=== PATIENT | female | born 1945 | race Caucasian/White ===

== ENCOUNTER → 2017-09-05 | Outpatient (CLI) | payer MEDICARE ==
[~2017-09-05] MED LIST: ALLO100T PO; ATOR40TA69 PO; BISA5TAB12 PO; COLC0.6T67 PO; DICL2100G TP; GABA300S PO; LISI40TA4 PO; SERT100T12 PO; TRAM50TA4 PO; VIT D3; VIT500LI PO
== END | disposition home or self-care (01) ==
LOC: RAH 08:34
PROVIDERS: ATTEND Family Medicine
DX: Z12.31 Encounter for screening mammogram for malignant neoplasm of breast (principal)
CPT/HCPCS: 77067

== ENCOUNTER → 2017-09-18 | Outpatient (CLI) | payer MEDICARE | END | disposition home or self-care (01) | LOC: RAH 12:15 | PROVIDERS: ATTEND Family Medicine | DX: N60.01 Solitary cyst of right breast (principal); N60.02 Solitary cyst of left breast; R92.8 Other abnormal and inconclusive findings on diagnostic imaging of breast | CPT/HCPCS: 76641 ==

== ENCOUNTER 2018-05-14 09:37 | Emergency (ER) | payer MEDICARE ==
[~2018-05-14 09:37] MED LIST changes: +ASCO-360 PO; +CALC600T12 PO; +CARAL PO; -COLC0.6T67 PO; +FESO8TAB PO; +GABA-531 PO; -GABA300S PO; +HYLAND'S LEG CRAMPS PO; +MAGN400T40 PO; +NAPR220C15 PO; +ONDA4TAB10 PO; +POTA99TA4 PO; -VIT D3; +VIT D3 PO; -VIT500LI PO
[2018-05-14 10:46] LABS: CREATININE 0.8 mg/dL (0.5-1.5); POTASSIUM 4.1 mmol/L (3.5-5.1)
[2018-05-14 10:50] LABS: BILIRUBIN,TOTAL 0.8 mg/dL (0.2-1.0); MAGNESIUM 2.1 mg/dL (1.80-2.40); TOTAL PROTEIN, SERUM 7.8 g/dL (6.0-8.3)
[2018-05-14] MEDS ORDERED: ENOXAPARIN SODIUM 100 MG/1 ML SQ ONE (12:13)
== END 2018-05-14 12:50 | disposition home or self-care (01) ==
LOC: EDH 09:37
DX: I82.492 Acute embolism and thrombosis of other specified deep vein of left lower extremity (principal); E78.5 Hyperlipidemia, unspecified; I10 Essential (primary) hypertension; F32.9 Major depressive disorder, single episode, unspecified; Z91.041 Radiographic dye allergy status; Z90.710 Acquired absence of both cervix and uterus; Z98.890 Other specified postprocedural states
CPT/HCPCS: 36415; 80053; 83735; 93970; 96372; 99285; J1650

== ENCOUNTER 2018-05-14 19:36 | Inpatient (IN) | payer MEDICARE ==
[~2018-05-14] VITALS: Ht 162.6 cm; Wt 104.5 kg
[2018-05-14] MEDS ORDERED: ACETAMINOPHEN-CODEINE 300/30MG TAB ONE (20:04)
[2018-05-14] MEDS ORDERED: ONDANSETRON HCL 4 MG/2 ML VIAL ONE (21:36)
[2018-05-14] MEDS ORDERED: MORPHINE SULFATE 4 MG/1ML SYG ONE (21:37)
[2018-05-15] MEDS ORDERED: MORPHINE SULFATE 2 MG/ML 1ML SYG IVP PRN (01:15)
[2018-05-15] MEDS ORDERED: GLUCAGON 1MG KIT 1 MG ML IM PRN (01:15)
[2018-05-15] MEDS: LACTATED RINGERS 1000ML 1,000 ML IV SCH ×2 (01:15→23:26)
[2018-05-15] MEDS ORDERED: DEXTROSE 50%-WATER 50 ML DISP.SYRIN IV PRN (01:15)
[2018-05-15] MEDS ORDERED: ENOXAPARIN SODIUM 100 MG/1 ML SQ SCH ×2 (01:15→21:00)
[2018-05-15] MEDS ORDERED: LABETALOL 20 MG/4 ML DISP.SYRIN IV PRN (01:30)
[2018-05-15] MEDS ORDERED: ACETAMINOPHEN 325 MG TAB PO PRN ×2 (01:30)
[2018-05-15] MEDS ORDERED: ONDANSETRON HCL 4 MG/2 ML VIAL IVP PRN (01:30)
[2018-05-15] MEDS ORDERED: LACTATED RINGERS 1000ML 1,000 ML IV ONE (02:44)
[2018-05-15] MEDS ORDERED: ENOXAPARIN SODIUM 100 MG/1 ML SQ ONE (02:44)
[2018-05-15 03:00] VITALS: BP 138/76
[2018-05-15] MEDS: INSULIN R PO SS1 SQ SCH ×4 (06:23→21:00)
[2018-05-15 08:00] VITALS: BP 123/88
[2018-05-15] MEDS: HYDROCODONE/ACETAMINOPHEN 5/325 MG TAB PO PRN ×2 (11:31→17:07)
[2018-05-15 12:00] VITALS: BP 129/69
[2018-05-15] MEDS ORDERED: SUCRALFATE 1 GM/10 ML PO PRN (12:45)
[2018-05-15] MEDS ORDERED: [UNRECOGNIZED DRUG - OTHER] PO PRN (14:56)
[2018-05-15] MEDS: GABAPENTIN 300 MG CAPSULE PO SCH ×2 (15:10→23:52)
[2018-05-15 16:00] VITALS: BP 154/82
[2018-05-15 19:00] VITALS: BP 111/57
[2018-05-15] MEDS: ALLOPURINOL 100 MG TABLET PO SCH (23:13)
[2018-05-15] MEDS: ASCORBIC ACID 500 MG TAB PO SCH (23:13)
[2018-05-15] MEDS: ATORVASTATIN CALCIUM 40 MG TABLET PO SCH (23:13)
[2018-05-15] MEDS: CALCIUM CARBONATE 500 MG TABLET PO SCH (23:13)
[2018-05-15] MEDS: APIXABAN 5 MG TABLET PO SCH (23:14)
[2018-05-15] MEDS: BISACODYL 5 MG TABLET.DR PO SCH (23:14)
[2018-05-16] VITALS: BP 137/55
[2018-05-16] MEDS: HYDROCODONE/ACETAMINOPHEN 5/325 MG TAB PO PRN (01:42)
[2018-05-16 04:00] VITALS: BP 105/54
[2018-05-16 04:52] LABS: HEMATOCRIT 40.1 % (36-48); MEAN CORPUSCULAR HGB CONC 33.5 g/dL (32.0-36.0); MEAN CORPUSCULAR VOLUME 89.7 fL (79-99); NUCLEATED RED BLOOD CELLS 0.1 % (0.0-0.19); PLATELET COUNT (AUTO) 168 K/uL (130-400); RED BLOOD CELL COUNT(AUTO) 4.47 MIL/uL (4.00-5.50); RED CELL DISTRIBUTION WIDTH 14.3 % (11.0-15.5); WHITE BLOOD COUNT (AUTO) 8.4 K/uL (4.8-10.8)
[2018-05-16 05:11] LABS: CREATININE 0.7 mg/dL (0.5-1.5); POTASSIUM 3.6 mmol/L (3.5-5.1)
[2018-05-16] MEDS: INSULIN R PO SS1 SQ SCH ×4 (06:57→21:00)
[2018-05-16 07:00] VITALS: BP 136/81
[2018-05-16] MEDS: POTASSIUM 99 MG PO SCH (09:00)
[2018-05-16] MEDS: GABAPENTIN 300 MG CAPSULE PO SCH ×2 (10:11→14:32)
[2018-05-16] MEDS: APIXABAN 5 MG TABLET PO SCH ×2 (10:12→23:07)
[2018-05-16] MEDS: MAGNESIUM OXIDE 400 MG TABLET PO SCH (10:12)
[2018-05-16] MEDS: SERTRALINE HCL 50 MG TABLET PO SCH (10:12)
[2018-05-16] MEDS: LISINOPRIL 40 MG TABLET PO SCH (10:12)
[2018-05-16 11:00] VITALS: BP 114/70
[2018-05-16] MEDS: LACTATED RINGERS 1000ML 1,000 ML IV SCH (14:00)
[2018-05-16 15:51] VITALS: BP_SYST 115; BP_SYST 123; BP_DIAS 55; BP_DIAS 77
[2018-05-16] MEDS ORDERED: HYDROMORPHONE 1 MG/1 ML AMP IVP PRN (16:30)
[2018-05-16] MEDS ORDERED: MAG HYDROX/AL HYDROX/SIMETH ES 30 ML SUSP UDCUP PO PRN (17:00)
[2018-05-16 17:23] LABS: CREATINE KINASE, TOTAL 53 U/L (21-232); MYOGLOBIN 58 ng/mL (10-92); TROPONIN I < 0.04 ng/mL (0.00-0.06)
[2018-05-16] MEDS: PANTOPRAZOLE SODIUM 40 MG TABLET.DR PO SCH (17:58)
[2018-05-16 19:00] VITALS: BP 130/66
[2018-05-16] MEDS: BISACODYL 5 MG TABLET.DR PO SCH (21:00)
[2018-05-16] MEDS: ATORVASTATIN CALCIUM 40 MG TABLET PO SCH (23:07)
[2018-05-16] MEDS: CALCIUM CARBONATE 500 MG TABLET PO SCH (23:08)
[2018-05-16] MEDS: ASCORBIC ACID 500 MG TAB PO SCH (23:08)
[2018-05-16] MEDS: ALLOPURINOL 100 MG TABLET PO SCH (23:08)
[2018-05-16] MEDS: GABAPENTIN 100 MG CAPSULE PO SCH (23:08)
[2018-05-17] VITALS (7 sets, daily range): BP systolic 104–123; BP diastolic 45–54
[2018-05-17 04:59] LABS: MEAN CORPUSCULAR HEMOGLOBIN 30.2 pg (27.0-33.0); MEAN CORPUSCULAR VOLUME 88.9 fL (79-99); PLATELET COUNT (AUTO) 196 K/uL (130-400); RED BLOOD CELL COUNT(AUTO) 4.39 MIL/uL (4.00-5.50); RED CELL DISTRIBUTION WIDTH 14.1 % (11.0-15.5)
[2018-05-17 05:10] LABS: INR 1.22 (0.85-1.15); PARTIAL THROMBOPLASTIN TIME 34.8 SEC (26.3-35.5); PROTHROMBIN TIME 12.8 SEC (9.6-11.6)
[2018-05-17 05:21] LABS: CREATININE 0.8 mg/dL (0.5-1.5); MAGNESIUM 1.9 mg/dL (1.80-2.40); POTASSIUM 3.4 mmol/L (3.5-5.1); THYROID STIMULATING HORMONE 0.48 uIU/mL (0.36-3.74)
[2018-05-17] MEDS: LACTATED RINGERS 1000ML 1,000 ML IV SCH ×3 (06:19→20:43)
[2018-05-17] MEDS: INSULIN R PO SS1 SQ SCH ×4 (07:30→21:00)
[2018-05-17] MEDS: HYDROMORPHONE 1 MG/1 ML AMP IVP PRN ×2 (08:59→20:48)
[2018-05-17] MEDS: PANTOPRAZOLE SODIUM 40 MG TABLET.DR PO SCH (09:00)
[2018-05-17] MEDS: POTASSIUM 99 MG PO SCH (09:00)
[2018-05-17] MEDS: MAGNESIUM OXIDE 400 MG TABLET PO SCH (09:00)
[2018-05-17] MEDS: GABAPENTIN 100 MG CAPSULE PO SCH ×3 (09:01→20:45)
[2018-05-17] MEDS: LISINOPRIL 40 MG TABLET PO SCH (09:01)
[2018-05-17] MEDS: SERTRALINE HCL 50 MG TABLET PO SCH (09:01)
[2018-05-17] MEDS: APIXABAN 5 MG TABLET PO SCH ×2 (09:02→20:46)
[2018-05-17] MEDS ORDERED: MAGNESIUM 2GM PREMIX 50ML 50 ML IV SCH (17:00)
[2018-05-17] MEDS ORDERED: POTASSIUM CHLORIDE 20 MEQ ERTAB PO SCH (17:00)
[2018-05-17] MEDS: ASCORBIC ACID 500 MG TAB PO SCH (20:45)
[2018-05-17] MEDS: BISACODYL 5 MG TABLET.DR PO SCH (20:45)
[2018-05-17] MEDS: CALCIUM CARBONATE 500 MG TABLET PO SCH (20:45)
[2018-05-17] MEDS: ALLOPURINOL 100 MG TABLET PO SCH (20:46)
[2018-05-17] MEDS: ATORVASTATIN CALCIUM 40 MG TABLET PO SCH (20:46)
[2018-05-18] MEDS: HYDROCODONE/ACETAMINOPHEN 5/325 MG TAB PO PRN (01:07)
[2018-05-18 03:42] VITALS: BP 108/56
[2018-05-18] MEDS: HYDROMORPHONE 1 MG/1 ML AMP IVP PRN ×2 (04:27→21:06)
[2018-05-18] MEDS: INSULIN R PO SS1 SQ SCH ×4 (06:03→21:00)
[2018-05-18 08:32] VITALS: BP 127/60
[2018-05-18] MEDS: POTASSIUM 99 MG PO SCH (09:00)
[2018-05-18] MEDS: LACTATED RINGERS 1000ML 1,000 ML IV SCH ×2 (09:15→22:40)
[2018-05-18] MEDS: GABAPENTIN 100 MG CAPSULE PO SCH ×3 (11:19→21:05)
[2018-05-18] MEDS: SERTRALINE HCL 50 MG TABLET PO SCH (11:19)
[2018-05-18] MEDS: PANTOPRAZOLE SODIUM 40 MG TABLET.DR PO SCH (11:19)
[2018-05-18] MEDS: MAGNESIUM OXIDE 400 MG TABLET PO SCH (11:19)
[2018-05-18] MEDS: LISINOPRIL 40 MG TABLET PO SCH (11:20)
[2018-05-18] MEDS: APIXABAN 5 MG TABLET PO SCH ×2 (11:38→21:06)
[2018-05-18 13:48] VITALS: BP 105/67
[2018-05-18 16:37] VITALS: BP 106/59
[2018-05-18 20:01] VITALS: BP 105/43
[2018-05-18] MEDS: CALCIUM CARBONATE 500 MG TABLET PO SCH (21:05)
[2018-05-18] MEDS: BISACODYL 5 MG TABLET.DR PO SCH (21:05)
[2018-05-18] MEDS: ATORVASTATIN CALCIUM 40 MG TABLET PO SCH (21:06)
[2018-05-18] MEDS: ALLOPURINOL 100 MG TABLET PO SCH (21:06)
[2018-05-18] MEDS: ASCORBIC ACID 500 MG TAB PO SCH (21:07)
[2018-05-18 23:42] VITALS: BP 118/68
[2018-05-19] MEDS: HYDROMORPHONE 1 MG/1 ML AMP IVP PRN ×4 (02:28→20:01)
[2018-05-19 03:59] VITALS: BP 104/57
[2018-05-19] MEDS: INSULIN R PO SS1 SQ SCH ×2 (06:11→11:30)
[2018-05-19 08:00] VITALS: BP 128/77
[2018-05-19] MEDS: POTASSIUM 99 MG PO SCH (09:00)
[2018-05-19] MEDS: PANTOPRAZOLE SODIUM 40 MG TABLET.DR PO SCH (09:22)
[2018-05-19] MEDS: MAGNESIUM OXIDE 400 MG TABLET PO SCH (09:23)
[2018-05-19] MEDS: APIXABAN 5 MG TABLET PO SCH (09:23)
[2018-05-19] MEDS: LISINOPRIL 40 MG TABLET PO SCH (09:23)
[2018-05-19] MEDS: GABAPENTIN 100 MG CAPSULE PO SCH ×2 (09:23→14:31)
[2018-05-19] MEDS: SERTRALINE HCL 50 MG TABLET PO SCH (09:24)
[2018-05-19 11:54] VITALS: BP 120/67
[2018-05-19 16:00] VITALS: BP 130/73
[2018-05-19 19:36] VITALS: BP 103/77
[2018-05-23] MEDS ORDERED: APIXABAN 5 MG TABLET PO SCH (09:00)
== END 2018-05-19 21:00 | DRG 301 ==
LOC: EDH 19:36 → OBSVTOIN 05-15 00:17 → EDHIP 05-15 00:17 → 3BH 05-15 02:54
PROVIDERS: ADMIT Internal Medicine Critical Care Medicine; ATTEND Internal Medicine Critical Care Medicine
DX: I82.402 Acute embolism and thrombosis of unspecified deep veins of left lower extremity (principal); E78.5 Hyperlipidemia, unspecified; G89.4 Chronic pain syndrome; I10 Essential (primary) hypertension; M10.9 Gout, unspecified; F32.9 Major depressive disorder, single episode, unspecified; Z90.710 Acquired absence of both cervix and uterus; Z88.8 Allergy status to other drugs, medicaments and biological substances
CPT/HCPCS: 36415; 71045; 78580; 80048; 82550; 82948; 83735; 83874; 84443; 84484; 85027; 85610; 85730; 93005; 97039; A9540; J1170; J1650; J2270; J2405; J3475; J7120

== ENCOUNTER → 2018-11-11 | Outpatient (CLI) | payer MEDICARE | END | disposition home or self-care (01) | LOC: RAH 10:23 | PROVIDERS: ATTEND Family Medicine | DX: Z12.31 Encounter for screening mammogram for malignant neoplasm of breast (principal) | CPT/HCPCS: 77067 ==

== ENCOUNTER 2025-05-05 13:36 | Emergency (ER) | payer MEDICARE ==
[~2025-05-05] VITALS: Ht 165.1 cm; Wt 72.6 kg
[~2025-05-05 13:36] MED LIST changes: +BISA-189 PO; -BISA5TAB12 PO; +CALC-1125 PO; -CALC600T12 PO; +LISI40TA15 PO; -LISI40TA4 PO; +ONDA-243 PO; -ONDA4TAB10 PO; +SERT-440 PO; -SERT100T12 PO
--- NOTE | 2025-05-05 14:06 | ERN ---
ED Note History of Present Illness Stated Complaint: MECHANICAL FALL Chief Complaint: Mechanical Fall Time Seen by MD: 13:39 Dictation: PATIENT IS A 79-YEAR-OLD FEMALE TRANSPORTED TO THE EMERGENCY ROOM VIA EMS FROM A LOCAL HOSPICE CARE CENTER. SHE WAS HERE THAT WITH A DEFORMITY AND SWELLING TO THE DISTAL RIGHT LEG AND KNEE ONSET WAS YESTERDAY AFTER A SAME LEVEL SLIP FALL. SHE STATES SHE WAS TRYING TO AMBULATE IN HER SOCKS WHEN SHE FELL AND LANDED ON HER KNEE. DISTAL NEUROVASCULAR IS GROSSLY INTACT THERE WAS AN OBVIOUS DEFORMITY TO THE KNEE AND DISTAL FEMUR. HISTORY OF PROSTHETIC BILATERAL KNEES Allergies: Coded Allergies: Iodine and Iodide Containing Produc (Unverified Allergy, Unknown, SHORTNESS OF BREATH, 03/17/15) SWELLING Home Meds Reported Medications Sucralfate (Carafate Susp) 1 Gm/10 Ml Susp, 1 GM PO [id number] PRN for THROAT AND CHEST PAIN, ML 03/23/18 Ondansetron (Ondansetron Odt) 4 Mg Tab.rapdis, 4 MG PO [id number] PRN for NAUSEA/VOMITING, TAB 03/23/18 Magnesium Oxide (Magnesium) 400 Mg Tablet, 400 MG PO AM, TAB 01/31/18 [Keena's Leg Cramps] No Conflict Check, 1 CAP PO TID PRN for LEG CRAMPS 01/31/18 Naproxen Sodium (Aleve) 220 Mg Capsule, 220 MG PO AD, CAP 01/31/18 Calcium Carbonate (Calcium) 600 Mg Tablet, 600 MG PO HS, TAB 01/31/18 Potassium (Potassium) 99 Mg Tablet, 99 MG PO DAILY, TAB 01/31/18 Ascorbate Calcium (Vitamin C) 500 Mg Tablet, 500 MG PO HS, TAB 01/31/18 Fesoterodine Fumarate (Toviaz) 8 Mg Tab.er.24h, 8 MG PO DAILY, TAB 01/31/18 Gabapentin (Gabapentin) 300 Mg Capsule, 300 MG PO TID, CAP 01/31/18 Bisacodyl (Dulcolax 5Mg Tab) 5 Mg Tablet.dr, 10 MG PO HS, TAB 03/16/15 [Vit D3] 1999 No Conflict Check, 2000 UNITS PO DAILY 03/16/15 Diclofenac Sodium (Voltaren 1% Gel [2 gm/Dose]) 1 Appl/2 Gm Gel, 1 APPL TP AD, GEL 03/16/15 Atorvastatin Calcium (LIPITOR) 80 Mg Tablet, 80 MG PO HS, TAB 03/16/15 Allopurinol (Allopurinol) 100 Mg Tablet, 100 MG PO HS, TAB 03/16/15 Tramadol Hcl (Tramadol HCl) 50 Mg Tablet, 50 MG PO TID, TAB 03/16/15 Sertraline HCl (Sertraline HCl) 100 Mg Tablet, 150 MG PO DAILY, TAB 03/16/15 Lisinopril (Lisinopril) 40 Mg Tablet, 40 MG PO DAILY, TAB 03/16/15 Past Medical History Past Medical History: High Cholesterol, Hypertension Surgical History: Other Surgical History Other: BILATERAL KNEE REPLACEMENT History: Not Applicable RN Note Reviewed/Agreed w/PFSH: Yes Review of System Dictation CONSTITUTIONAL: NEGATIVE EXCEPT FOR HPI HEAD/FACE: NEGATIVE EXCEPT FOR HPI EENT: NEGATIVE EXCEPT FOR HPI RESPIRATORY: NEGATIVE EXCEPT FOR HPI GASTROINTESTINAL/ABDOMINAL: NEGATIVE EXCEPT FOR HPI GENITOURINARY: NEGATIVE EXCEPT FOR HPI MUSCULOSKELETAL: NEGATIVE EXCEPT FOR HPI RIGHT LEG PAIN AND DEFORMITY TO KNEE AND DISTAL FEMUR INTEGUMENTARY: NEGATIVE EXCEPT FOR HPI NEUROLOGICAL/PSYCH: NEGATIVE EXCEPT FOR HPI HEMATOLOGIC/LYMPHATIC: NEGATIVE EXCEPT FOR HPI ALL SYSTEMS NEGATIVE, EXCEPT NOTED ABOVE. 13 POINT REVIEW OF SYSTEMS ASSESSED AND ALL NEGATIVE EXCEPT FOR ABOVE. Initial Vital Sign VS Vital Signs Date Time Temp Pulse Resp B/P (MAP) Pulse Ox O2 Delivery O2 Flow Rate FiO2 05/05/25 13:57 98.1 55 15 109/55 96 Room Air 05/05/25 15:25 0 21 Physical Exam Dictation VITAL SIGNS REVIEWED GENERAL APPEARANCE: ALERT, ORIENTED X 3, MILD ACUTE DISTRESS, WELL DEVELOPED, NOURISHED. HEAD AND FACE: NON-TRAUMATIC. EYES: PERRL, PINK CONJUNCTIVAS, EYELID NO TRAUMA, ANTERIOR CHAMBER WITH ARCUS SENILIS. EARS: PINNAS INTACT AND NO SIGNS OF TRAUMA OR ERYTHEMA EAR CANALS CLEAR AND NO DISCHARGE TM NO ERYTHEMA NOSE: NO DISCHARGE, NO BLEEDING. OROPHARYNX: MOUTH NORMAL, TONGUE PINK, PHARYNX CLEAR,NO ERYTHEMA, TONSILS NO EXUDATES, NO ABSCESSES NOTED, MUCOUS MEMBRANE MOIST NECK: SUPPLE, NON-TENDER, NO THYROMEGALY, NO MASSES, NO JVD, NO BRUITS BREAST:DEFERRED CHEST:NO TENDERNESS, NO CREPITUS, NO PARADOXICAL MOVEMENT, NO RETRACTIONS LUNGS:CLEAR, WELL-VENTILATED, SYMMETRIC, NO RALES, NO WHEEZING, NO RHONCHI, NO STRIDOR, GOOD BREATH SOUNDS BILATERALLY HEART: REGULAR RATE, REGULAR RHYTHM, NO MURMUR, NO GALLOPS VASCULAR: NO PERIPHERAL EDEMA, ABDOMEN: SOFT, POSITIVE BOWEL SOUNDS, NONDISTENDED, NO GUARDING, NONTENDER, NO REBOUND, NO MASSES NO HEPATOMEGALY, NO SPLENOMEGALY, NO MARR'S SIGN, NO HERNIAS. RECTAL: DEFERRED GENITAL: DEFERRED NEUROLOGICAL: NORMAL SPEECH, MOTOR FUNCTION INTACT, SENSORY FUNCTION INTACT MUSCULOSKELETAL: NECK NONTENDER, FULL RANGE OF MOTION, BACK NONTENDER, FULL RANGE OF MOTION, EXTREMITIES: DISTAL DISTAL RIGHT FEMUR WITH DEFORMITY AND SIGNIFICANT KNEE SWELLING. DECREASED RANGE OF MOTION SECONDARY TO PAIN. NO SHORTENING OR ROTATION OF RIGHT LEG. SKIN: COLOR PINK, DRY, NO TURGOR, NO RASH, NO LACERATIONS, NO ABRASIONS, NO CONTUSIONS. LYMPHATIC: DEFERRED Results (Laboratory/Radiology) Laboratory/Radiology Laboratory Tests Test 05/05/25 14:15 White Blood Count 9.3 K/uL (4.8-10.8) Red Blood Count 4.68 MIL/uL (4.00-5.50) Hemoglobin 12.9 g/dL (12.0-16.0) Hematocrit 38.3 % (36-48) Mean Corpuscular Volume 81.8 fL (79-99) Mean Corpuscular Hemoglobin 27.6 pg (27.0-33.0) Mean Corpuscular Hemoglobin Concent 33.7 g/dL (32.0-36.0) Red Cell Distribution Width 14.5 % (11.0-15.5) Platelet Count 157 K/uL (130-400) Mean Platelet Volume 11.2 fL (7.5-10.5) H Immature Granulocyte % (Auto) 0.3 % (0-1) Neutrophils (%) (Auto) 74.4 % (40.0-77.0) Lymphocytes (%) (Auto) 13.6 % (21.0-51.0) L Monocytes (%) (Auto) 7.5 % (3.0-13.0) Eosinophils (%) (Auto) 3.4 % (0.0-8.0) Basophils (%) (Auto) 0.8 % (0.0-5.0) Neutrophils # (Auto) 6.9 K/uL (1.8-7.7) Lymphocytes # (Auto) 1.3 K/uL (1.0-4.8) Monocytes # (Auto) 0.7 K/uL (0.1-1.0) Eosinophils # (Auto) 0.32 K/uL (0.00-0.70) Basophils # (Auto) 0.07 K/uL (0.00-0.20) Absolute Immature Granulocyte (auto 0.03 K/uL (0-1) Nucleated Red Blood Cells 0.0 % (0.0-0.19) Sodium Level 140 mmol/L (136-145) Potassium Level 3.8 mmol/L (3.5-5.1) Chloride Level 104 mmol/L (101-111) Carbon Dioxide Level 29 mmol/L (21-32) Blood Urea Nitrogen 19 mg/dL (7-18) H Creatinine 0.6 mg/dL (0.5-1.0) Glomerular Filtration Rate Calc 91 mL/min (>90) Random Glucose 85 mg/dL (70-105) Total Calcium 8.7 mg/dL (8.5-10.1) rison no prior Findings: Fixation hardware is noted across the distal femur fracture. Normal alignment is maintained The soft tissues are unremarkable. No lucency around the hardware is seen. There is a knee prosthesis noted. Soft tissue swelling is seen around the patella Impression: Acute distal femur fracture just above the prosthesis /[place] DICTATED BY: JAYESH ARVIZU MD DATE: 05/05/251618 ELECTRONICALLY SIGNED BY: JAYESH ARVIZU MD DATE: 05/05/25 161 Labs Reviewed?: Yes ED Course ED Course Orders Procedure Category Date Status Time Pelvis 1-2vws RAD 05/05/25 Resulted 14:00 Femur 2vw Right RAD 05/05/25 Resulted 14:00 Knee 3vws Rt RAD 05/05/25 Resulted 14:00 Cbc With Differential LAB 05/05/25 Complete 14:00 Ondansetron 4mg Inj PHA 05/05/25 Complete (Zofran 4mg Inj) 14:00 Basic Metabolic Panel LAB 05/05/25 Complete 14:00 Morphine 4mg Syg PHA 05/05/25 Complete (Morphine 4mg Syg) 14:00 Knee Immobilizer JUDI 05/05/25 In Process 15:58 Current Medications Medications (Trade) Dose Ordered Sig/Lachelle Route PRN Reason Start Time Stop Time Status Last Admin Dose Admin Morphine Sulfate (morPHINE 4MG SYG) 2 mg ONCE ONCE IVP 05/05/25 14:00 05/05/25 14:03 DC Ondansetron HCl (zoFRAN 4MG INJ) 4 mg ONCE ONCE IVP 05/05/25 14:00 05/05/25 14:03 DC Vital Signs Date Time Temp Pulse Resp B/P (MAP) Pulse Ox O2 Delivery O2 Flow Rate FiO2 05/05/25 15:25 97.5 54 16 120/42 95 Room Air* 0 21 05/05/25 13:57 98.1 55 15 109/55 96 Room Air 1555/cold [facility] care may number at [phone], spoke with Cherie Jeffers RN. 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 She said she is in the hospice for decreased mobility. She states she has a history of dementia, diabetes mellitus, hyperlipidemia, hypothyroidism, osteoporosis. States she also has a recent surgery to the right leg after a fall. She said the fall happened today when they had her on a recliner that stands upright to allow patients to walk and she slid down and fell on her knee. She said if patient does not receive surgery, she would like her back at her facility with a an immobilizer. 1615/SPOKE WITH PATIENT AT LENGTH WITH ROSA RN AT BEDSIDE. PATIENT STATES EMPHATICALLY SHE DOES NOT WANT TO HAVE SURGERY ON THE LEG AND WISHES TO RETURN BACK TO BE HOSPICE CARE FACILITY. SHE IS CURRENTLY ALERT AND ORIENTED TIMES 3- 4, SPEECH IS CLEAR AND SHE HAS REPEATED TO MYSELF AND ROSA THAT SHE DOES NOT WANT SURGERY. IMMOBILIZER WE WILL BE PLACED TO RIGHT LEG AND PATIENT WILL RETURN BACK TO THE FACILITY. Medical Decision Making MDM MDM: DIFFERENTIAL DIAGNOSIS: FALL/HIP FRACTURE/KNEE FRACTURE/FEMUR FRACTURE/ELECTROLYTE IMBALANCE/DEHYDRATION/WEAKNESS RATIONALE: TESTS CONSIDERED AND ORDERED SECONDARY TO SHARED DECISION MAKING INCLUDE: X-RAYS/LABS PREVIOUS OUTSIDE RECORDS REVIEWED: OLD ER VISITS. RISK OF COMPLICATION AND/OR MORBIDITY OR MORTALITY OF PATIENT MANAGEMENT: NONE MEDICATIONS-PER MEDICATION RECONCILIATION NEED FOR HOSPITALIZATION: PATIENT DOES NOT MEET CRITERIA FOR HOSPITALIZATION. PATIENT REFUSES SURGERY AT THIS TIME. THE DIRECTOR OF HER HOSPICE CARE CENTER AGREES WITH PATIENT IMMOBILIZER WE WILL BE PLACED AND SHE WILL BE TURNED BACK TO THE FACILITY. NEED FOR EMERGENCY MAJOR/MINOR SURGERY: NO PATIENT REFUSED THERE ARE NO SOCIAL CONCERNS WITH THIS PATIENT. PRESCRIPTION DRUG MANAGEMENT PRESCRIPTIONS WILL INCLUDE SYMPTOMATIC CARE PATIENT'S PRIOR EXTERNAL MEDICAL RECORDS FROM OTHER ER VISITS WERE REVIEWED BY ME INDICATED. PRIOR TESTING AND RESULTS FROM PREVIOUS VISITS WERE REVIEWED. PRIOR TESTS WERE TAKEN INTO ACCOUNT WITH MEDICAL DECISION MAKING AND RESOURCE UTILIZATION, INDEPENDENT HISTORIAN/HISTORIANS WERE USED TO OBTAIN COMPLETE MEDICAL HISTORY. I INDEPENDENTLY INTERPRETED THE TEST THAT WERE PERFORMED, RESULTS WERE REVIEWED BY ME AND CONSIDERED FINDINGS ON RADIOLOGY IF ORDERED. MEDICAL MANAGEMENT AND EXAMINATION INTERPRETATION DISCUSSIONS WERE HAD BY ME WITH OTHER QUALIFIED HEALTHCARE PROFESSIONALS INDICATED FOR THE PATIENT'S CARE. HIP DX & DISP Disposition: Discharge Departure Impression: Primary Impression: Femur fracture, right Additional Impressions: Dehydration, Chronic anemia, Fall, Patient on full hospice care Condition: Stable Additional Instructions: FOLLOW-UP WITH PRIMARY CARE PROVIDER IN 1 TO 2 DAYS. TAKE MEDICATIONS DIRECTED HERE IN THE EMERGENCY ROOM. OKAY TO CONTINUE HOME MEDICATIONS UNLESS OTHERWISE DISCUSSED DURING YOUR VISIT IN THE EMERGENCY ROOM TODAY. RETURN TO YOUR NEAREST EMERGENCY ROOM IF SYMPTOMS WORSEN OR IF THERE IS NO IMPROVEMENT. CALL 911 IF YOU NEED IMMEDIATE ASSISTANCE. TAKE TYLENOL OR MOTRIN [id number] NEEDED AND IF NO CONTRAINDICATIONS ARE PRESENT. INCREASE ORAL HYDRATION. A WOUND CULTURE OR URINE CULTURE WAS ORDERED HERE IN THE EMERGENCY ROOM DEPARTMENT PLEASE FOLLOW-UP WITH PRIMARY CARE PROVIDER AND ADVISE THEM TO GET REPEAT PORTS FROM OUR FACILITY. IF YOU HAD ANY WARREN WRAP/SPLINTS THAT WERE APPLIED HERE, PLEASE DO NOT REMOVE THEM UNTIL YOU SEE YOUR PRIMARY CARE OR SPECIALTY. RIGHT KNEE IMMOBILIZER AND NO WEIGHT-BEARING RIGHT LEG UNTIL CLEARED BY YOUR DOCTOR. COOL COMPRESSES TO LEG THREE TO 4 TIMES A DAY. SEE YOUR HOSPICE CARE PHYSICIAN FOR MANAGEMENT OF YOUR PAIN. MEDICALLY CLEARED TO RETURN BACK TO HOSPICE CARE WITH KNEE IMMOBILIZER ON RIGHT LEG Referrals: TAN SANTANA MD (PCP) Time of Disposition: 16:20 I have reviewed the case, and I agree with, Diagnosis and Plan MYRIAM W[place] May 05, 2025 14:06
[2025-05-05 14:24] LABS: IMMATURE GRANULOCYTE ABSOLUTE 0.03 K/uL (0-1); NUCLEATED RED BLOOD CELLS 0.0 % (0.0-0.19); PLATELET COUNT (AUTO) 157 K/uL (130-400); RED BLOOD CELL COUNT(AUTO) 4.68 MIL/uL (4.00-5.50); RED CELL DISTRIBUTION WIDTH 14.5 % (11.0-15.5); WHITE BLOOD COUNT (AUTO) 9.3 K/uL (4.8-10.8)
[2025-05-05 14:27] LABS: CREATININE 0.6 mg/dL (0.5-1.0); GLOMERULAR FILTR. RATE CALC 91.0 mL/min (>90); GLUCOSE,RANDOM 85.0 mg/dL (70-105); SODIUM SERUM 140.0 mmol/L (136-145); UREA NITROGEN, BLOOD 19.0 mg/dL (7-18)
--- NOTE | 2025-05-05 15:20 | HMCIMG ---
Comparison no prior Findings: Fixation hardware is noted across the distal femur fracture. Normal alignment is maintained The soft tissues are unremarkable. No lucency around the hardware is seen. There is a knee prosthesis noted. Soft tissue swelling is seen around the patella Impression: Acute distal femur fracture just above the prosthesis /[place]
--- NOTE | 2025-05-05 15:51 | HMCIMG ---
Comparison no prior Findings: Fixation hardware is noted across the distal femur with a fracture seen above the prosthesis.. Normal alignment is maintained The soft tissues are unremarkable. No lucency around the hardware is seen. Impression: Acute distal femur fracture above the prosthesis /[place]
--- NOTE | 2025-05-05 15:51 | HMCIMG ---
Comparison: Findings: Anatomic alignment is maintained. There is no acute fracture or dislocation. The soft tissues are unremarkable. There are no erosive changes seen. Narrowing of the joint space is noted in both hips which suggest arthritis. Impression: No acute fracture or dislocation. Degenerative changes affecting the hips bilaterally /[place]
--- NOTE | 2025-05-05 16:30 | NUR ---
MYRIAM Jansen NETWORKING ENGINEER AT BEDSIDE. PT DECIDED NOT TO HAVE A KNEE SURGERY,[facility]
--- NOTE | 2025-05-05 16:55 | NUR ---
R KNEE IMMOBILIZER IN PLACE.PT RECEIVED PERSONAL CARE AND HER ADULT PAD WAS CHANGED.
--- NOTE | 2025-05-05 17:20 | NUR ---
[facility],ANTIONE DONALDSON RN INFORMED OF PT'S RETURN.
--- NOTE | 2025-05-05 17:31 | NUR ---
[facility] INFORMED OF TRANSFER
[2025-05-05 23:31] VITALS: BP 132/62; PULSE 58; RESP 1; TEMP 98.1; O2SAT 98
== END 2025-05-05 23:32 | disposition hospice, inpatient (51) ==
LOC: EDH 13:36
DX: S72.401A Unspecified fracture of lower end of right femur, initial encounter for closed fracture (principal); D64.9 Anemia, unspecified; E78.00 Pure hypercholesterolemia, unspecified; E86.0 Dehydration; I10 Essential (primary) hypertension; Z79.899 Other long term (current) drug therapy; Z88.8 Allergy status to other drugs, medicaments and biological substances; Z96.653 Presence of artificial knee joint, bilateral; W01.0XXA Fall on same level from slipping, tripping and stumbling without subsequent striking against object, initial encounter; Y93.01 Activity, walking, marching and hiking; Y92.89 Other specified places as the place of occurrence of the external cause; Y99.8 Other external cause status
CPT/HCPCS: 99285; 96374; 29505; 96375; 80048; 85025; 36415; 73552; 73562; 72170; J2405; J2270